=== PATIENT | male | born 1985 | race African-American/Black ===

== ENCOUNTER 2017-03-02 20:47 | Emergency (ER) | payer SELFPAY ==
--- NOTE | 2017-03-02 22:43 | RADIOLOGY REPORT (SQ) ---
EXAM DESCRIPTION: SHOULDER RIGHT 2 OR MORE VIEWS COMPLETED DATE/TIME: 03/02/2017 10:06 pm REASON FOR STUDY: FALL COMPARISON: None. NUMBER OF VIEWS: Three views. TECHNIQUE: Internal rotation, external rotation, and Y view images acquired of the right shoulder. LIMITATIONS: None. FINDINGS: MINERALIZATION: Normal. BONES: Near complete AC joint dislocation. No acute fracture or glenohumeral dislocation. No worris ome bone lesions. JOINTS: No dislocation. VISUALIZED LUNGS AND RIBS: No pneumothorax. No rib fracture. SOFT TISSUES: No radiopaque foreign body. OTHER: No other significant finding. IMPRESSION: Near complete AC joint dislocation. TECHNICAL DOCUMENTATION: JOB ID: [id number] [employer]- All Rights Reserved
[2017-03-02] MEDS ORDERED: IBUPROFEN 600 MG TABLET PO ONE (22:57)
[2017-03-02] MEDS ORDERED: LIDOCAINE 5% (700 MG) TRANSDERMAL ADH..PATCH TP ONE (22:57)
[2017-03-02] MEDS ORDERED: ACETAMINOPHEN 325 MG TABLET PO ONE (22:57)
--- NOTE | 2017-03-02 22:57 | ER Document Report ---
ED General - General Chief Complaint: Shoulder Injury Stated Complaint: SHOULDER PAIN Time Seen by Provider: 03/02/17 22:43 Notes: Patient is a 31-year-old male who presents with acute right shoulder pain. States this started after he sustained direct trauma to the shoulder while playing football. Apparently another player hit the shoulder when tackling the patient. Patient states that since that time he has had a severe, constant, aching pain to the right shoulder. Any attempt at movement of the shoulder worsens the pain. Nothing improves the pain. He has no history of a prior injury to this area. He denies any additional injuries today. No associated weakness or numbness. He has not seen his primary care doctor regarding today' s concerns. He is right-hand dominant. TRAVEL OUTSIDE OF THE [place] IN LAST 30 DAYS: No - Related Data Allergies/Adverse Reactions: No Known Allergies Allergy (Unverified 03/02/17 21:10) Past Medical History - General Information source: Patient - Social History Smoking Status: Never Smoker Frequency of alcohol use: None Drug Abuse: None Family History: Reviewed & Not Pertinent Patient has suicidal ideation: No Patient has homicidal ideation: No Renal/ Medical History: Denies: Hx Peritoneal Dialysis Review of Systems - Review of Systems Notes: Constitutional: Negative for fever. Eyes: Negative for visual changes. ENT: Negative for facial injury Cardiovascular: Negative for chest injury. Respiratory: Negative for shortness of breath. Gastrointestinal: Negative for abdominal injury. Genitourinary: Negative for genital injury Musculoskeletal: Positive for right shoulder pain Skin: Negative for laceration/abrasions. Neurological: Negative for head injury. Physical Exam - Vital signs Vitals: Temp Pulse Resp BP Pulse Ox 98.0 F 50 L 14 162/95 H 100 03/02/17 21:10 03/02/17 21:10 03/02/17 21:10 03/02/17 21:10 03/02/17 21:10 Interpretation: Hypertensive Notes: PHYSICAL EXAMINATION: GENERAL: Well-appearing, well-nourished and in no acute distress. HEAD: Atraumatic, normocephalic. EYES: sclera anicteric, conjunctiva are normal. ENT: Moist mucous membranes. NECK: Normal range of motion LUNGS: Normal work of breathing HEART: 2+ radial pulses bilaterally EXTREMITIES: no pitting or edema. No cyanosis. Pain on palpation of the right shoulder. Unable to perform range of motion with the shoulder secondary to pain NEUROLOGICAL: No focal neurological deficits. Moves all extremities spontaneously and on command. RMU motor and sensory distribution is intact in the bilateral upper extremities PSYCH: Normal mood, normal affect. SKIN: Warm, Dry, normal turgor, no rashes or lesions noted. Course - Re-evaluation Re-evalutation: 03/02/17 22:50 Patient presents with acute right shoulder pain after sustaining a direct blunt trauma to the right shoulder while playing football. His x-ray is consistent with an AC joint separation. He did not sustain any additional injuries. RMU motor and sensory function is intact bilaterally. He is right-hand dominant. He has been placed in a sling, Lidoderm patches been placed over the area and he has been started on NSAIDs and Tylenol. I have referred him to orthopedic surgery for definitive management. At this time will discharge with return precautions and follow-up recommendations. Verbal discharge instructions given a the bedside and opportunity for questions given. Medication warnings reviewed. Patient is in agreement with this plan and has verbalized understanding of return precautions and the need for orthopedic surgical follow- up in the next 24-72 hours. - Vital Signs Vital signs: Temp Pulse Resp BP Pulse Ox 98.8 F 50 L 18 145/82 H 100 03/02/17 23:08 03/02/17 23:08 03/02/17 23:08 03/02/17 23:08 03/02/17 23:08 - Diagnostic Test Radiology reviewed: Image reviewed, Reports reviewed Radiology results interpreted by me: 03/02/17 22:51 Right shoulder x-ray: AC joint separation Discharge - Discharge Clinical Impression: Separation of AC joint Qualifiers: Encounter type: initial encounter Laterality: right Qualified Code(s): S43.101A - Unspecified dislocation of right acromioclavicular joint, initial encounter Condition: Good Disposition: HOME, SELF-CARE Additional Instructions: You have an AC joint separation and need to follow-up with orthopedic surgery. For your pain: Take ibuprofen 600 mg and acetaminophen 1000 mg every 6 hours together as needed for pain. Please also apply a topical anesthetic such as Aspercreme with lidocaine to the affected area. Wear the sling except when you are showering or sleeping. Return if you develop weakness, numbness, worsening pain, or any other symptoms that are worrisome to you. Referrals: CLARICE BISWAS MD [ACTIVE STAFF] - Follow up as needed
[2017-03-02 23:10] VITALS: BP 145/82
== END 2017-03-02 23:07 | disposition home or self-care (01) ==
LOC: ER 20:47
DX: S43.101A Unspecified dislocation of right acromioclavicular joint, initial encounter (principal); M25.511 Pain in right shoulder; W03.XXXA Other fall on same level due to collision with another person, initial encounter; Y93.61 Activity, american tackle football
CPT/HCPCS: 99283